=== PATIENT | male | born 1960 | race African-American/Black ===

== ENCOUNTER 2017-01-12 11:22 | Inpatient (IN) | payer OTHER ==
[~2017-01-12] VITALS: Ht 188 cm; Wt 106.1 kg
[2017-01-12] VITALS (14 sets, daily range): BP systolic 132–190; BP diastolic 90–130
--- NOTE | ~2017-01-12 | EKG ---
[place], [place] ELECTROCARDIOGRAM REPORT NAME: DYLLAN TELLES UNIT #: [id number] ROOM: [facility] DOCTOR: TEZ YUAN,MAN BIRTHDATE: [birth year] DOS: 01/12/2017 TIME: 01/12/2017 at 1155 hours. Sinus tachycardia at 130 beats per minute. Left ventricular hypertrophy with repolarization abnormality. An abnormal ECG. No previous tracing is available for comparison. MAN REAGAN MD CM:EKGRPT:ELECTROCARDIOGRAM REPORT [id number] MAN REAGAN MD
--- NOTE | ~2017-01-12 | CON ---
[place], [place] REPORT OF CONSULTATION [id number] #: [id number] ROOM: [facility] DOCTOR: MAN REAGAN MD BIRTHDATE: [birth year] DOS: 01/12/2017 HISTORY OF PRESENT ILLNESS: This is a 56-year-old -[place] gentleman who has never had hypertension, diabetes, heart failure, stroke, kidney problems or lung problems. He has never had cancer or any GI bleeding. He does not use alcoholic beverages. No illicit drugs. 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 I was asked to see him because of possible heart failure. This gentleman has been noticing increasing shortness of breath over the last 3-4 weeks and also has developed swelling of the lower extremities. He has always had mild swelling in the left leg, but now both leg and particularly the feet have become very swollen and his thighs have also become puffy. He has had PND and orthopnea for the last 3 weeks and has nocturia x 3. He had no palpitations, has not had any chest pain or any heaviness in the chest, has not had any loss of consciousness and no fever or chills. He is not on any medications. PHYSICAL EXAMINATION: GENERAL: The patient is very pleasant, alert, oriented. He is mildly tachypneic. His mucous membranes are normal. He is not diaphoretic. VITAL SIGNS: Pulse is regular at 118 beats per minute, blood pressure 130/76. NECK: JVP is elevated to greater than 15 cm of water. No bruit in the neck. Parasternal heave is not present. Auscultation revealed no obvious early murmurs or extra heart sounds that I could appreciate. He has severe edema of the lower extremity including thigh and torso is also edematous. HEART: S1, tachypnea. Percussion note revealed dullness in the lower half of the right lung with markedly diminished breath sounds. Crackles are present on both sides. ABDOMEN: Liver is mildly enlarged and is not tender. EXTREMITIES: There is no ascites. Bowel sounds are normal. LABORATORY DATA: An ECG showed a sinus tachycardia with LVH and repolarization abnormality. Monitor showed monomorphic ventricular tachycardia at 180 beats per minute. If I am not mistaken, the nurse told me it was 51 beats. Chest x-ray demonstrated moderate right pleural effusion and pulmonary edema. Hemoglobin 13.5 g/dL, platelets are normal. BUN 20, creatinine 1.5, potassium 4.0. NT-proBNP 37,716. Troponin I was 0.059. An echocardiogram was done today. It demonstrated LVH and an LV ejection fraction of 25% due to diffuse hypokinesia, mild left atrial enlargement, mild hypokinesia of the right ventricle and small pericardial effusion, mild mitral regurgitation, mild tricuspid regurgitation. Pulmonary artery systolic pressure is calculated at 52 mmHg. IMPRESSION: 1. This patient has severe cardiomyopathy and echo seemed to suggest nonischemic etiology. 2. He has severe biventricular failure with anasarca. [place], [place] REPORT OF CONSULTATION NAME: DYLLAN TELLES UNIT #: [id number] ROOM: [facility] DOCTOR: MAN REAGAN MD BIRTHDATE: [birth year] 3. Monomorphic ventricular tachycardia. This is of much concern in this patient with severe cardiomyopathy. RECOMMENDATIONS: Metoprolol 25 b.i.d., start slow dose lisinopril. He needs IV furosemide to onload tremendous amount of volume he has. Potassium and magnesium supplement is being started. This patient needs diagnostic heart cath with selective coronary angiogram to exclude coronary artery disease as the etiology of his cardiomyopathy. This ventricular tachycardia is of some concern. I think he probably will end up with an AICD. I thank you for this consult. MAN REAGAN MD CM:CONSTR:REPORT OF CONSULTATION 07 01/13/17 0230 interface
[~2017-01-12 11:22] MED LIST: VICO10300 PO
[2017-01-12 11:58] LABS: BASO % 0.2 % (0.0-1.0); EOS % 0.4 % (1.0-4.0); HEMOGLOBIN 13.5 g/dl (14.0-18.0); LYMPH # 1.2 10*3/uL (1.3-4.4); LYMPH % 24.9 % (27.0-41.0); MEAN CELL VOLUME 67.7 fl (80.0-94.0); MEAN CORPUSCULAR HGB 21.8 pg (27.0-31.0); MEAN CORPUSCULAR HGB CONC 32.1 g/dl (33.0-37.0); MEAN PLATELET VOLUME 9.9 fl (9.6-12.3); MONO # 0.4 10*3/uL (0.1-1.0); MONO % 8.2 % (3.0-9.0); NEUT # 3.1 10*3/uL (2.3-7.9); NEUT % 66.1 % (47.0-73.0); PLATELET COUNT AUTOMATED 359 10*3/uL (130-400); RED CELL DISTRI WIDTH 18.8 % (0-14.5); WHITE BLOOD COUNT 4.7 10*3/uL (4.8-10.8)
[2017-01-12 12:06] LABS: INTERNATIONAL NORM RATIO 1.1 (2.0-3.5); PROTHROMBIN TIME 11.5 SECONDS (9.0-12.4)
[2017-01-12 12:17] LABS: BILIRUBIN, TOTAL 0.6 mg/dl (0.2-1.0); C-REACTIVE PROTEIN 0.39 MG/DL (0-0.3); MAGNESIUM 1.9 mg/dL (1.5-2.1); TOTAL PROTEIN 6.4 gm/dL (6.4-8.2)
[2017-01-12 12:21] LABS: TROPONIN I 0.059 ng/ml (<0.045)
[2017-01-12 12:28] LABS: BILIRUBIN NEGATIVE (NEGATIVE); BLOOD TRACE-INTACT (NEGATIVE); CLARITY SL CLOUDY (CLEAR); COLOR YELLOW (YELLOW); GLUCOSE NEGATIVE (NEGATIVE); KETONE NEGATIVE (NEGATIVE); LEUKO ESTERASE NEGATIVE (NEGATIVE); NITRITE NEGATIVE (NEGATIVE); PH 5.5 (5.0-9.0); PROTEIN TRACE (NEGATIVE); UROBILINOGEN 0.2 E.U./dl (0.2-1.0)
[2017-01-12 12:45] LABS: URINE REFLEX COMMENT NO (NO)
[2017-01-12 12:46] LABS: BACTERIA TRACE; WBC 0-2 wbc/hpf (0-5)
[2017-01-12 13:55] LABS: LA>2 REFLEX 2 HR DRAW NOW
[2017-01-12 14:34] LABS: LA>2 RFLX FOLLOW UP AT 2 HRS 2.2 mmol/L (0.4-2.0)
[2017-01-12 16:25] LABS: LA>2 REFLEX 4 HR DRAW NOW
[2017-01-12 17:41] LABS: URINE AMPHETAMINES < 1000 (1000ng/ml); URINE BARBITURATES < 200 (200ng/ml); URINE COCAINE < 300 (300ng/ml)
[2017-01-12 18:15] LABS: CKMB 3.5 ng/ml (0.5-3.6)
[2017-01-12 18:19] LABS: TROPONIN I 0.065 ng/ml (<0.045)
== END 2017-01-12 22:42 | disposition short-term general hospital (02) | DRG 291 ==
LOC: ED 11:22 → EDHOLD 13:24 → 5E 13:32 → ICCU 17:08
PROVIDERS: Internal Medicine; Registered Nurse; Student in an Organized Health Care Education/Training Program
DX: I11.0 Hypertensive heart disease with heart failure (principal); N17.0 Acute kidney failure with tubular necrosis; E87.2 Acidosis; I16.1 Hypertensive emergency; E44.0 Moderate protein-calorie malnutrition; I34.0 Nonrheumatic mitral (valve) insufficiency; M13.872 Other specified arthritis, left ankle and foot; I50.9 Heart failure, unspecified; D50.9 Iron deficiency anemia, unspecified; I42.9 Cardiomyopathy, unspecified; D72.810 Lymphocytopenia; R73.9 Hyperglycemia, unspecified; Z68.28 Body mass index [BMI] 28.0-28.9, adult; Z87.891 Personal history of nicotine dependence; Z82.49 Family history of ischemic heart disease and other diseases of the circulatory system; Z83.3 Family history of diabetes mellitus

== ENCOUNTER 2017-02-18 12:04 | Inpatient (IN) | payer OTHER ==
[~2017-02-18] VITALS: Ht 187.9 cm; Wt 81.8 kg
[2017-02-18] VITALS (11 sets, daily range): BP systolic 143–196; BP diastolic 97–124
[2017-02-18] MEDS ORDERED: Magnesium Oxid400 MG PO (12:06)
[2017-02-18] MEDS ORDERED: POTASSIUM CHLO10 ME4 PO (12:06)
[2017-02-18] MEDS ORDERED: LISINOPRIL10 M1 PO (12:06)
[2017-02-18] MEDS ORDERED: ASPIRIN ADULT L81 M1 PO (12:06)
[2017-02-18] MEDS ORDERED: AMIODARONE HCL200 MG PO (12:06)
[2017-02-18] MEDS ORDERED: METOPROLOL TART50 M1 PO (12:06)
[2017-02-18] MEDS ORDERED: NITROGLYCERIN0.4 MG SL (12:06)
[2017-02-18] MEDS ORDERED: ATORVASTATIN CA80 M1 PO (12:07)
[2017-02-18] MEDS ORDERED: BRILINTA90 M1 PO ×2 (12:07→12:48)
[2017-02-18] MEDS ORDERED: LASIX40 MG PO ×2 (12:13→12:48)
[2017-02-18 12:34] LABS: BASO % 0.2 % (0.0-1.0); EOS % 0.4 % (1.0-4.0); HEMATOCRIT 36.8 % (42.0-52.0); LYMPH # 0.9 10*3/uL (1.3-4.4); LYMPH % 17.3 % (27.0-41.0); MEAN CELL VOLUME 68.1 fl (80.0-94.0); MEAN CORPUSCULAR HGB 22.2 pg (27.0-31.0); MEAN CORPUSCULAR HGB CONC 32.6 g/dl (33.0-37.0); MEAN PLATELET VOLUME 10.1 fl (9.6-12.3); MONO # 0.5 10*3/uL (0.1-1.0); MONO % 9.2 % (3.0-9.0); NEUT # 3.9 10*3/uL (2.3-7.9); NEUT % 72.7 % (47.0-73.0); PLATELET COUNT AUTOMATED 296 10*3/uL (130-400); RED CELL DISTRI WIDTH 20.6 % (0-14.5); WHITE BLOOD COUNT 5.3 10*3/uL (4.8-10.8)
[2017-02-18 12:43] LABS: INTERNATIONAL NORM RATIO 1.1 (2.0-3.5); PROTHROMBIN TIME 11.6 SECONDS (9.0-12.4)
[2017-02-18] MEDS ORDERED: FISH OIL1000 MG PO (12:48)
[2017-02-18] MEDS ORDERED: PACERONE200 MG PO (12:49)
[2017-02-18] MEDS ORDERED: LIPITOR80 MG PO (12:49)
[2017-02-18] MEDS ORDERED: NITROSTAT0.4 MG SL (12:50)
[2017-02-18] MEDS ORDERED: LOPRESSOR50 M1 PO (12:51)
[2017-02-18] MEDS ORDERED: LISINOPRIL2.5 MG PO (12:51)
[2017-02-18] MEDS ORDERED: ASPIRIN81 M1 PO (12:52)
[2017-02-18] MEDS ORDERED: MAGNESIUM OXID400 MG PO (12:52)
[2017-02-18] MEDS ORDERED: KLOR-CON 1010 ME1 PO (12:53)
[2017-02-18 12:54] LABS: ALBUMIN 3.4 gm/dl (3.1-4.5); ALKALINE PHOSPHATASE 108 U/L (45-117); BILIRUBIN, TOTAL 0.8 mg/dl (0.2-1.0); BUN 14 mg/dl (7-24); CARBON DIOXIDE 23 mmol/L (21-32); CHLORIDE 107 mmol/L (98-107); EST GLOM FILT AFRICAN AMERICAN > 60 ml/min; GLUCOSE 139 mg/dL (65-99); MAGNESIUM 1.7 mg/dL (1.5-2.1); POTASSIUM 3.6 mmol/L (3.5-5.1); SGOT/AST 27 IU/L (3-35); SGPT/ALT 64 U/L (12-78); SODIUM 140 mmol/L (136-145); TOTAL PROTEIN 6.9 gm/dL (6.4-8.2); TROPONIN I 0.021 ng/ml (<0.045)
[2017-02-18 14:47] LABS: LA>2 REFLEX 2 HR DRAW NOW
[2017-02-18 17:56] LABS: CKMB 1.9 ng/ml (0.5-3.6)
[2017-02-19] VITALS (8 sets, daily range): BP systolic 132–185; BP diastolic 95–126
[2017-02-19 00:32] LABS: CKMB 2.1 ng/ml (0.5-3.6)
[2017-02-19 06:24] LABS: BASO % 0.4 % (0.0-1.0); EOS # 0.1 10*3/uL (0.0-0.4); EOS % 1.2 % (1.0-4.0); HEMATOCRIT 33.7 % (42.0-52.0); LYMPH # 1.4 10*3/uL (1.3-4.4); LYMPH % 27.3 % (27.0-41.0); MEAN CELL VOLUME 68.4 fl (80.0-94.0); MEAN CORPUSCULAR HGB 22.3 pg (27.0-31.0); MEAN CORPUSCULAR HGB CONC 32.6 g/dl (33.0-37.0); MEAN PLATELET VOLUME 9.9 fl (9.6-12.3); MONO # 0.6 10*3/uL (0.1-1.0); MONO % 11.8 % (3.0-9.0); NEUT # 2.9 10*3/uL (2.3-7.9); NEUT % 59.1 % (47.0-73.0); PLATELET COUNT AUTOMATED 254 10*3/uL (130-400); RED BLOOD COUNT 4.93 10*6/uL (4.50-5.90); RED CELL DISTRI WIDTH 19.9 % (0-14.5)
[2017-02-19 06:38] LABS: ALBUMIN 2.8 gm/dl (3.1-4.5); ALKALINE PHOSPHATASE 90 U/L (45-117); BILIRUBIN, TOTAL 0.8 mg/dl (0.2-1.0); BUN 17 mg/dl (7-24); CARBON DIOXIDE 27 mmol/L (21-32); CHLORIDE 106 mmol/L (98-107); CHOLESTEROL 117 mg/dL (<200); EST GLOM FILT AFRICAN AMERICAN > 60 ml/min; GLUCOSE 77 mg/dL (65-99); HDL CHOLESTEROL 36 mg/dl (40-60); LDL CHOLESTEROL 71 mg/dL (9-159); MAGNESIUM 1.7 mg/dL (1.5-2.1); PHOSPHOROUS 3.9 mg/dL (2.5-4.9); SGOT/AST 29 IU/L (3-35); SGPT/ALT 59 U/L (12-78); SODIUM 141 mmol/L (136-145); TOTAL PROTEIN 5.8 gm/dL (6.4-8.2); TRIGLYCERIDES 50 mg/dl (<150); VLDL CHOLESTEROL 10 mg/dL (6-40)
[2017-02-19 06:39] LABS: CKMB 1.9 ng/ml (0.5-3.6)
[2017-02-19 19:25] LABS: BUN 18 mg/dl (7-24); CARBON DIOXIDE 29 mmol/L (21-32); CHLORIDE 104 mmol/L (98-107); EST GLOM FILT AFRICAN AMERICAN > 60 ml/min; GLUCOSE 107 mg/dL (65-99); POTASSIUM 4.1 mmol/L (3.5-5.1); SODIUM 139 mmol/L (136-145)
[2017-02-20] VITALS: BP 141/111
[2017-02-20 04:00] VITALS: BP 140/92
[2017-02-20 06:38] LABS: BASO % 0.2 % (0.0-1.0); EOS # 0.1 10*3/uL (0.0-0.4); EOS % 1.9 % (1.0-4.0); HEMATOCRIT 34.9 % (42.0-52.0); HEMOGLOBIN 11.3 g/dl (14.0-18.0); LYMPH # 1.3 10*3/uL (1.3-4.4); LYMPH % 22.1 % (27.0-41.0); MEAN CELL VOLUME 67.6 fl (80.0-94.0); MEAN CORPUSCULAR HGB 21.9 pg (27.0-31.0); MEAN CORPUSCULAR HGB CONC 32.4 g/dl (33.0-37.0); MEAN PLATELET VOLUME 10.5 fl (9.6-12.3); MONO # 0.7 10*3/uL (0.1-1.0); MONO % 12.7 % (3.0-9.0); NEUT # 3.6 10*3/uL (2.3-7.9); NEUT % 62.9 % (47.0-73.0); PLATELET COUNT AUTOMATED 282 10*3/uL (130-400); RED BLOOD COUNT 5.16 10*6/uL (4.50-5.90); WHITE BLOOD COUNT 5.7 10*3/uL (4.8-10.8)
[2017-02-20 07:01] LABS: BUN 17 mg/dl (7-24); CARBON DIOXIDE 29 mmol/L (21-32); CHLORIDE 104 mmol/L (98-107); EST GLOM FILT AFRICAN AMERICAN > 60 ml/min; FREE T4 1.13 ng/dl (0.76-1.46); GLUCOSE 84 mg/dL (65-99); POTASSIUM 3.9 mmol/L (3.5-5.1); SODIUM 140 mmol/L (136-145)
[2017-02-20 08:00] VITALS: BP 144/114
[2017-02-20 12:00] VITALS: BP 144/112
[2017-02-20 16:00] VITALS: BP 137/109
[2017-02-20 20:00] VITALS: BP 139/106
[2017-02-21] VITALS: BP 156/113
[2017-02-21 06:27] LABS: BASO % 0.3 % (0.0-1.0); EOS # 0.1 10*3/uL (0.0-0.4); EOS % 1.8 % (1.0-4.0); HEMATOCRIT 37.2 % (42.0-52.0); HEMOGLOBIN 12.2 g/dl (14.0-18.0); LYMPH # 1.3 10*3/uL (1.3-4.4); LYMPH % 21.4 % (27.0-41.0); MEAN CELL VOLUME 68.1 fl (80.0-94.0); MEAN CORPUSCULAR HGB 22.3 pg (27.0-31.0); MEAN CORPUSCULAR HGB CONC 32.8 g/dl (33.0-37.0); MEAN PLATELET VOLUME 10.2 fl (9.6-12.3); MONO # 0.6 10*3/uL (0.1-1.0); MONO % 10.5 % (3.0-9.0); NEUT % 65.7 % (47.0-73.0); PLATELET COUNT AUTOMATED 294 10*3/uL (130-400); RED BLOOD COUNT 5.46 10*6/uL (4.50-5.90); RED CELL DISTRI WIDTH 20.7 % (0-14.5); WHITE BLOOD COUNT 6.1 10*3/uL (4.8-10.8)
[2017-02-21 08:00] VITALS: BP 146/90
[2017-02-21 08:51] LABS: ALBUMIN 3.1 gm/dl (3.1-4.5); ALKALINE PHOSPHATASE 103 U/L (45-117); BILIRUBIN, TOTAL 0.9 mg/dl (0.2-1.0); BUN 17 mg/dl (7-24); CARBON DIOXIDE 32 mmol/L (21-32); CHLORIDE 102 mmol/L (98-107); EST GLOM FILT AFRICAN AMERICAN > 60 ml/min; GLUCOSE 67 mg/dL (65-99); MAGNESIUM 1.8 mg/dL (1.5-2.1); POTASSIUM 4.2 mmol/L (3.5-5.1); SGOT/AST 25 IU/L (3-35); SGPT/ALT 51 U/L (12-78); SODIUM 141 mmol/L (136-145)
[2017-02-21 12:00] VITALS: BP 121/86
[2017-02-21 16:00] VITALS: BP 126/90
[2017-02-21 20:00] VITALS: BP 140/103
[2017-02-22] VITALS: BP 124/92
[2017-02-22 06:21] LABS: BASO % 0.2 % (0.0-1.0); EOS # 0.1 10*3/uL (0.0-0.4); EOS % 2.2 % (1.0-4.0); LYMPH # 1.1 10*3/uL (1.3-4.4); LYMPH % 21.7 % (27.0-41.0); MEAN CELL VOLUME 67.2 fl (80.0-94.0); MEAN CORPUSCULAR HGB 21.8 pg (27.0-31.0); MEAN CORPUSCULAR HGB CONC 32.4 g/dl (33.0-37.0); MEAN PLATELET VOLUME 10.8 fl (9.6-12.3); MONO # 0.6 10*3/uL (0.1-1.0); MONO % 11.8 % (3.0-9.0); NEUT # 3.2 10*3/uL (2.3-7.9); NEUT % 63.7 % (47.0-73.0); PLATELET COUNT AUTOMATED 299 10*3/uL (130-400); RED BLOOD COUNT 5.51 10*6/uL (4.50-5.90); RED CELL DISTRI WIDTH 20.6 % (0-14.5); WHITE BLOOD COUNT 5.1 10*3/uL (4.8-10.8)
[2017-02-22 06:24] LABS: BUN 15 mg/dl (7-24); CARBON DIOXIDE 30 mmol/L (21-32); CHLORIDE 103 mmol/L (98-107); EST GLOM FILT AFRICAN AMERICAN > 60 ml/min; GLUCOSE 71 mg/dL (65-99); POTASSIUM 3.6 mmol/L (3.5-5.1); SODIUM 141 mmol/L (136-145)
[2017-02-22 08:00] VITALS: BP 143/98
[2017-02-22 12:00] VITALS: BP 110/70
[2017-02-22 16:00] VITALS: BP 106/72
[2017-02-22] MEDS ORDERED: METOPROLOL TAR100 M1 PO (17:24)
[2017-02-22] MEDS ORDERED: APRESOLINE25 MG PO (17:24)
[2017-02-22] MEDS ORDERED: LISINOPRIL10 M1 PO (17:24)
== END 2017-02-22 18:40 | disposition home or self-care (01) | DRG 291 ==
LOC: ED 12:04 → 5E 13:29 → EDHOLD 13:29 → 5E 14:07
PROVIDERS: Hospitalist; Internal Medicine; Internal Medicine Cardiovascular Disease; Internal Medicine Nephrology; Nurse Practitioner Family
DX: I11.0 Hypertensive heart disease with heart failure (principal); N17.0 Acute kidney failure with tubular necrosis; E87.2 Acidosis; J18.9 Pneumonia, unspecified organism; D50.9 Iron deficiency anemia, unspecified; F17.200 Nicotine dependence, unspecified, uncomplicated; I16.1 Hypertensive emergency; F17.210 Nicotine dependence, cigarettes, uncomplicated; D53.9 Nutritional anemia, unspecified; I50.23 Acute on chronic systolic (congestive) heart failure; R00.0 Tachycardia, unspecified; R73.9 Hyperglycemia, unspecified; F12.90 Cannabis use, unspecified, uncomplicated; Z95.5 Presence of coronary angioplasty implant and graft; Z95.810 Presence of automatic (implantable) cardiac defibrillator; Z79.82 Long term (current) use of aspirin; Z88.8 Allergy status to other drugs, medicaments and biological substances; Z82.49 Family history of ischemic heart disease and other diseases of the circulatory system; Z83.3 Family history of diabetes mellitus

== ENCOUNTER 2017-05-01 10:34 | Emergency (ER) | payer SELFPAY ==
[~2017-05-01] VITALS: Ht 187.9 cm; Wt 83.0 kg
[~2017-05-01 10:34] MED LIST changes: +AMIODARONE HCL200 MG PO; +APRESOLINE25 MG PO; +ASPIRIN ADULT L81 M1 PO; +ASPIRIN81 M1 PO; +ATORVASTATIN CA80 M1 PO; +BRILINTA90 M1 PO; +FISH OIL1000 MG PO; +KLOR-CON 1010 ME1 PO; +LASIX40 MG PO; +LIPITOR80 MG PO; +LISINOPRIL10 M1 PO; +LISINOPRIL2.5 MG PO; +LOPRESSOR50 M1 PO; +MAGNESIUM OXID400 MG PO; +METOPROLOL TAR100 M1 PO; +METOPROLOL TART50 M1 PO; +Magnesium Oxid400 MG PO; +NITROGLYCERIN0.4 MG SL; +NITROSTAT0.4 MG SL; +PACERONE200 MG PO; +POTASSIUM CHLO10 ME4 PO
== END 2017-05-01 13:03 | disposition home or self-care (01) ==
LOC: ED 10:34
DX: Z48.01 Encounter for change or removal of surgical wound dressing (principal); I11.0 Hypertensive heart disease with heart failure; I50.9 Heart failure, unspecified; F17.200 Nicotine dependence, unspecified, uncomplicated; Z88.8 Allergy status to other drugs, medicaments and biological substances; Z79.82 Long term (current) use of aspirin

== ENCOUNTER 2017-05-29 16:33 | Inpatient (IN) | payer SELFPAY ==
[~2017-05-29] VITALS: Ht 188 cm; Wt 82.7 kg
--- NOTE | ~2017-05-29 | CON ---
[place], [place] REPORT OF CONSULTATION [id number] UNIT #: [id number] ROOM: 403 DOCTOR: ANGUS PAZ MD BIRTHDATE: [birth year] DOS: 05/30/2017 HISTORY OF PRESENT ILLNESS: I am seeing this patient on behalf of Dr. Reagan. The patient was seen by Dr. Reagan in the office yesterday. The patient had a hematoma. The patient had a defibrillator placed by Dr. Elizondo 1 month ago. The patient has a history of left ventricular dysfunction. The patient had a hematoma, which burst open and cleaned by Dr. Reagan and he has suggested the patient should be admitted to the hospital for IV antibiotics. The patient got admitted here. The patient got dark brown liquid, probably of chronic blood from the hematoma that he had post-procedure. Procedure was done by Dr. Elizondo and seen by Dr. Reagan yesterday. Right now, the patient does not look to be septic. He is very comfortable. His white count is only 3.9 and he is afebrile. I discussed with Dr. Reagan. He does not want the patient to be transferred anywhere. At this point, he does not look to be septic, septic workup needs to be done with weldon cultures. The patient should be on IV antibiotics. If there is any evidence of sepsis, then the patient probably needs to be transferred to [place]. PAST MEDICAL HISTORY: Significant for severe cardiomyopathy, low EF, cardiac defibrillator in place, status post stent placement, hypertension and hyperlipidemia. SOCIAL HISTORY: Denies any alcohol abuse, former smoker and marijuana use. FAMILY HISTORY: Positive for coronary artery disease. ALLERGIES: AMIODARONE. HOME MEDICATIONS: Aspirin, atorvastatin, Lasix and ticagrelor. REVIEW OF SYSTEMS: CONSTITUTIONAL: Denies any fever or chills. HEENT: No visual disturbances or hearing problems. CARDIOVASCULAR: As per HPI. GASTROINTESTINAL: No nausea, no vomiting. GENITOURINARY: No dysuria. NEUROLOGICAL: Stable. PHYSICAL EXAMNATION: VITAL SIGNS: Blood pressure today is 160/90. He is afebrile. HEENT: Unremarkable. Pacer site is slightly indurated and appears to have a small hematoma still present. NECK: Supple, no JVD. LUNGS: Diminished air entry. ABDOMEN: Soft, nontender. EXTREMITIES: Intact pulses. LABORATORY DATA: Sodium 139, potassium 3.7 and creatinine is normal. Troponin is negative. White count is 5, hemoglobin 12, hematocrit 38.2. [place], [place] REPORT OF CONSULTATION NAME: DYLLAN TELLES UNIT #: [id number] ROOM: 403 DOCTOR: ANGUS PAZ MD BIRTHDATE: [birth year] IMPRESSION: Status post pacemaker hematoma, defibrillator hematoma site. I do not think there is evidence of sepsis at this point. The patient is afebrile and white count is not elevated, blood pressure is in place, systolic congestive heart failure is well compensated. RECOMMENDATIONS: Continue IV antibiotics. The patient should be pancultured and we will review the echocardiogram. Continue the other medications as ordered. The patient is already on IV Zosyn and IV vancomycin, and we will follow up with you. Discussed with the house staff. ANGUS PAZ MD MAN REAGAN MD CM:CONSTR:REPORT OF CONSULTATION 0 05/30/1704 interface
--- NOTE | ~2017-05-29 | EKG ---
[place], [place] ELECTROCARDIOGRAM REPORT NAME: DYLLAN TELLES UNIT #: [id number] ROOM: 403 DOCTOR: MAN REAGAN MD BIRTHDATE: [birth year] DOS: 05/29/2017 TIME: 1931 hours. Normal sinus rhythm at 88 beats per minute. Left atrial abnormality. Poor R-wave progression. T-wave inversion in the lateral leads. An abnormal ECG. No previous tracing is available for comparison. MAN REAGAN MD CM:EKGRPT:ELECTROCARDIOGRAM REPORT 1141 1244 MAN REAGAN MD
--- NOTE | ~2017-05-29 | EKG ---
[place], [place] ELECTROCARDIOGRAM REPORT NAME: DYLLAN TELLES UNIT #: [id number] ROOM: 403 DOCTOR: MAN REAGAN MD BIRTHDATE: [birth year] DOS: 05/29/2017 TIME: 1722 hours. Normal sinus rhythm at 85 beats per minute. Left ventricular hypertrophy with repolarization abnormalities. Consider left atrial abnormality. MAN REAGAN MD CM:EKGRPT:ELECTROCARDIOGRAM REPORT 1143 1249 MAN REAGAN MD
--- NOTE | ~2017-05-29 | PR ---
[place], [place] PROGRESS NOTE NAME: [id number] UNIT #: [id number] ROOM: 403 DOCTOR: ANGUS PAZ MD BIRTHDATE: [birth year] DOS: 05/31/2017 SUBJECTIVE: I discussed the case with Dr. Reeves also with Dr. Elizabeth Ornelas. OBJECTIVE: VITAL SIGNS: The patient's blood pressure today is 146/90. He is afebrile. HEENT: Unremarkable. NECK: Supple, no JVD. LUNGS: Clear. HEART: Sounds are regular. Defibrillator site appears to be slightly indurated and not much discharge present. NEUROLOGIC: Stable. REVIEW OF SYSTEMS: Complains of pain over the left defibrillator site. Does have some dyspnea on exertion. No Chest discomfort. No GI issues. No neurological issues. LABORATORY DATA: White count of 3.8, hemoglobin 11.3, hematocrit 35.6. Electrolytes are normal. Hemoglobin A1c 5.8. IMPRESSION: Defibrillator site infection, hematoma, cardiomyopathy, hypertension. RECOMMENDATION: Continue IV antibiotics. Dr. Reeves will evaluate the patient and ID consult has been obtained. No obvious signs of sepsis and I will closely follow up. Blood cultures are pending. ANGUS PAZ MD CM:PNTRANS [id number] ANGUS PAZ MD 05/31/17 2340 interface
--- NOTE | ~2017-05-29 | PR ---
[place], [place] PROGRESS NOTE NAME: DYLLAN TELLES [facility] #: [id number] UNIT #: [id number] ROOM: 403 DOCTOR: MAN REAGAN MD BIRTHDATE: [birth year] DOS: SUBJECTIVE: This patient had an AICD implanted 3 weeks ago and 3 days prior to this admission, the wound had opened up because of large hematoma in the pocket. Drain was odorless and blood stained. Cultures were sent and ____ IV antibiotics. There is no more discharge, there is no effusion in the pocket and small opening on the lateral side of the wound is sealed and closing off. OBJECTIVE: The examination does not reveal any evidence of heart failure. LABORATORY DATA: An echocardiogram showed excellent ____ the valves, which demonstrated no endocarditis. EF was about 35%. IMPRESSION AND PLAN: 1. Severe cardiomyopathy. 2. Recent implantation of an automatic implantable cardioverter-defibrillator device with hematoma within the pocket, which ruptured. The wound has sealed off now. He can be sent home on IV antibiotics. He follow up with Dr. Elizondo and I would like to see him in the next couple of weeks as well. MAN REAGAN MD CM:PNTRANS [phone] [id number] MAN REAGAN MD 06/01/17 175 interface
[2017-05-29 16:41] VITALS: BP 182/110
[2017-05-29 17:01] VITALS: BP 170/90
--- NOTE | 2017-05-29 17:02 | NUR ---
THE SITE WAS CLEANED AND A CLEAN DRY DRESSING WAS APPLIED AFTER A CULTURE WAS TAKEN
[2017-05-29 17:23] LABS: BASO % 0.4 % (0.0-1.0); EOS # 0.1 10*3/uL (0.0-0.4); HEMATOCRIT 38.2 % (42.0-52.0); LYMPH # 1.2 10*3/uL (1.3-4.4); LYMPH % 23.2 % (27.0-41.0); MEAN CELL VOLUME 72.5 fl (80.0-94.0); MEAN CORPUSCULAR HGB 22.8 pg (27.0-31.0); MEAN CORPUSCULAR HGB CONC 31.4 g/dl (33.0-37.0); MEAN PLATELET VOLUME 11.2 fl (9.6-12.3); MONO # 0.4 10*3/uL (0.1-1.0); MONO % 8.4 % (3.0-9.0); NEUT # 3.4 10*3/uL (2.3-7.9); NEUT % 66.8 % (47.0-73.0); PLATELET COUNT AUTOMATED 261 10*3/uL (130-400); RED BLOOD COUNT 5.27 10*6/uL (4.50-5.90); RED CELL DISTRI WIDTH 17.4 % (0-14.5)
[2017-05-29 17:39] LABS: ALBUMIN 4.1 gm/dl (3.1-4.5); ALKALINE PHOSPHATASE 103 U/L (45-117); BUN 14 mg/dl (7-24); CHLORIDE 103 mmol/L (98-107); CREATININE 0.98 mg/dL (0.70-1.30); POTASSIUM 3.7 mmol/L (3.5-5.1); SGOT/AST 34 IU/L (3-35); SGPT/ALT 50 U/L (12-78); SODIUM 139 mmol/L (136-145); TOTAL PROTEIN 8.2 gm/dL (6.4-8.2); TROPONIN I 0.027 ng/ml (<0.045)
--- NOTE | 2017-05-29 18:36 | NUR ---
THE PT DID NOT WANT TO TAKE HIS PANTS AND SHOES OFF. DRAINING WOUND NOTED TO THE LEFT UPPER CHEST/SHOULDER AREA. THE PATIENT DENIES HAVING ANY OTHER OPEN AREAS TO HIS PERSON
[2017-05-29 19:05] VITALS: BP 162/98
[2017-05-29 19:44] VITALS: BP 156/88
[2017-05-29 20:29] VITALS: BP 182/95
[2017-05-29 20:30] VITALS: BP 182/95
--- NOTE | 2017-05-29 20:30 | NUR ---
A 56, admitted to , under the services of HANSEL Mata DO with a diagnosis of INFECTED SURGICAL WOUND. Chief complaint is DRAINAGE FROM NEW PACEMAKER SITE. Patient arrived via stretcher from ER. Monitor applied. Initial assessment completed. Vital signs taken and recorded. HANSEL MATA DO notified of admission to the unit. Orders received. See assessment for past medical history, medications and allergies. Patient and/or family oriented to unit. [facility] visitation policy reviewed. Clothing/patient valuable form completed. NAHOMY AVERY
[2017-05-29] MEDS ORDERED: LISINOPRIL10 M1 PO (20:33)
[2017-05-29] MEDS ORDERED: MULTIPLE VITAM1 EAC2 PO (20:36)
--- NOTE | 2017-05-29 20:39 | NUR ---
MED REC COMPLETED WITH LIST PATIENT BROUGHT FROM HOME. COPY MADE AND ON THE CHART. ORIGINAL GIVEN BACK TO PATIENT
--- NOTE | 2017-05-29 20:52 | NUR ---
DR. REAGAN NOTIFIED BY ER OF CONSULT.
--- NOTE | 2017-05-29 21:05 | NUR ---
DR. LOMAX REMINDED TO REORDER HOME MEDS, ACCURATE PER THE LIST PT. HAD. ALSO NOTIFIED OF PT'S B/P OF . AWAITING ORDERS
--- NOTE | 2017-05-29 22:43 | NUR ---
DR. MORALES STATED SURGICAL WOUND WOULD BE EVALUATED BY WOUND CARE IN AM AND DRESSING CHANGE ORDERS TO FOLLOW. OKAY TO COVER WITH 4x4S AND OPSITE WHILE DRAINING THIS PM.
[2017-05-30] VITALS: BP 127/87
[2017-05-30 06:07] LABS: BASO % 0.3 % (0.0-1.0); EOS # 0.1 10*3/uL (0.0-0.4); EOS % 1.6 % (1.0-4.0); HEMATOCRIT 33.7 % (42.0-52.0); HEMOGLOBIN 10.6 g/dl (14.0-18.0); LYMPH # 1.4 10*3/uL (1.3-4.4); LYMPH % 35.2 % (27.0-41.0); MEAN CELL VOLUME 73.1 fl (80.0-94.0); MEAN CORPUSCULAR HGB CONC 31.5 g/dl (33.0-37.0); MEAN PLATELET VOLUME 10.8 fl (9.6-12.3); MONO # 0.5 10*3/uL (0.1-1.0); MONO % 11.9 % (3.0-9.0); PLATELET COUNT AUTOMATED 204 10*3/uL (130-400); RED BLOOD COUNT 4.61 10*6/uL (4.50-5.90); RED CELL DISTRI WIDTH 17.2 % (0-14.5); WHITE BLOOD COUNT 3.9 10*3/uL (4.8-10.8)
[2017-05-30 06:40] LABS: BUN 13 mg/dl (7-24); CHLORIDE 105 mmol/L (98-107); CREATININE 0.91 mg/dL (0.70-1.30); POTASSIUM 3.6 mmol/L (3.5-5.1); SODIUM 141 mmol/L (136-145)
[2017-05-30 06:59] LABS: ACT PARTIAL THROMBO TIME 37.3 SECONDS (20.8-31.5); INTERNATIONAL NORM RATIO 1.1 (2.0-3.5)
[2017-05-30 07:02] LABS: VITAMIN D, 25-HYDROXY 19.2 ng/mL (30-100)
[2017-05-30 08:00] VITALS: BP 142/84
--- NOTE | 2017-05-30 08:00 | NUR ---
PT AWAKE ASSESSMENT COMPLETE. PT TOLERATED ROUTINE MEDS. NO PT COMPLAINTS AT THIS TIME.
--- NOTE | 2017-05-30 09:00 | NUR ---
Gasoline Plant Operator in to talk to patient. Patient states lives at home with family. There are few steps in the home. Physician: hilaria [facility] Home health services: none Patient's level of ADLs: INDEPENDENT Patient has working utilities: all working DME: none Follow-up physician's appointment after d/c: will be made by hospitalist nurse director upon discharge Does patient want to access PORTAL?: no Discharge plan discussed with patient, patient lives at home with family, states he gets around fine, patient states he will be going back home and denies any home needs. LIT GROSS
--- NOTE | 2017-05-30 10:27 | NUR ---
PER BUDGET ANALYST DURING ECHOCARDIOGRAM PT HAD A 7 BEAT RUN OF V-TACH. DR HERNANDEZ NOTIFIED. ORDER TO MAKE PT MONITORED RECEIVED.
--- NOTE | 2017-05-30 11:07 | NUR ---
CALLED DR LOBATO OFFICE AND LEFT INFORMATION REGARDING NEW PATIENT CONSULT. DR PULIDO WILL SEE PT LATER TODAY.
[2017-05-30 12:00] VITALS: BP 126/88
--- NOTE | 2017-05-30 12:49 | NUR ---
DYLLAN TELLES [id number] Please refer to the physician's history and physical for past medical history, comorbid conditions, and allergies. Diagnosis: INFECTED SURGICAL WOUND Sawyer Score: 22,LOW OR NO RISK WOUND DESCRIPTIONS: Location of the wound: left chest wall Type of wound: surgical Thickness: Full Size: 0.4cm x 0.3cm x 1.3cm Tunneling: none Undermining: none Sinus Tract: none Presence of Exudate: Sanguineous Amount: Moderate Color: Yellow Odor: None Periwound Skin Appearance: Normal Wound edges: approximated Pain (associated with wound): none at time of assessment. How does patient state this happened? pt stated it started draining last night then on monday it was draining on and off and stop sat and sun went to see Dr. Reeves on monday and push on area and dark brown fluid came out and was recommend that patient come to the hosptial to be seen. Patient stated Dr. Zhu did the surgery but since has been following with Dr. Reeves. Surface the patient is resting on: Position Pro SKIN PREVENTION RECOMMENDATION: 1. Pressure redistribution support surface as appropriate 2. Elevate heels 3. Remove boots/TEDS every shift and reapply 4. Head of bed 30 degrees as tolerated 5. Assess nutrition and hydration 6. Manage moisture 7. Avoid the use of containment devices while in bed 8. Use absorptive products on surfaces limit layers of linens on bed 9. Turn and reposition every 1-2 hours in bed and every 1 hour in chair as tolerated 10. Weight shifts every 15 minutes while up in chair 11. Offloading with pillows or device to keep heels elevated off bed 12. Monitor skin at least every shift 13. Inspect under medical devices twice a day WOUND TREATMENT RECOMMENDATIONS: Spoke with Dr. Stanley stating we need wound care orders for the area. Dr. Stanley stated they are going to wait until ID sees patient for recommendations.
--- NOTE | 2017-05-30 13:10 | NUR ---
ADMINISTERED FLU VACCINATION. RIGHT DELTOID
--- NOTE | 2017-05-30 15:36 | NUR ---
DR WINTER IN TO SEE PATIENT REGARDING ID CONSULT.
[2017-05-30 16:00] VITALS: BP 135/96
[2017-05-30 18:29] VITALS: BP 131/85
[2017-05-30 20:00] VITALS: BP 152/97
--- NOTE | 2017-05-30 20:00 | NUR ---
PATIENT SITTING UP IN BED, DENIES ANY PAIN AT PACER SITE, NO DRAINAGE. BANDAGE DRY AND INTACT. PATIENT HAS NO COMPLAINTS AT THIS TIME. WILL CONTINUE TO MONITOR, PATIENT LEFT WITH CALL LIGHT IN REACH.
--- NOTE | 2017-05-30 21:43 | NUR ---
DR MORALES NOTIFIED OF PATIENT HAVING 7 BEAT RUN OF VTACH. HE ASKED TO NOTIFY CARDIO.
--- NOTE | 2017-05-30 21:46 | NUR ---
NOTIFIED DR. PAZ NOTIFIED OF PATIENT HAVING 7 BEAT RUN OF VTACH. NO NEW ORDERS RECEIVED, CONTINUE TO MONITOR.
[2017-05-31] VITALS: BP 126/86
--- NOTE | 2017-05-31 00:21 | NUR ---
24 HR chart check completed.
[2017-05-31 07:50] LABS: BASO % 0.8 % (0.0-1.0); EOS # 0.2 10*3/uL (0.0-0.4); HEMATOCRIT 35.6 % (42.0-52.0); HEMOGLOBIN 11.3 g/dl (14.0-18.0); LYMPH # 0.9 10*3/uL (1.3-4.4); LYMPH % 24.5 % (27.0-41.0); MEAN CELL VOLUME 71.8 fl (80.0-94.0); MEAN CORPUSCULAR HGB 22.8 pg (27.0-31.0); MEAN CORPUSCULAR HGB CONC 31.7 g/dl (33.0-37.0); MEAN PLATELET VOLUME 11.2 fl (9.6-12.3); MONO # 0.4 10*3/uL (0.1-1.0); MONO % 10.6 % (3.0-9.0); NEUT # 2.3 10*3/uL (2.3-7.9); NEUT % 60.1 % (47.0-73.0); PLATELET COUNT AUTOMATED 180 10*3/uL (130-400); RED BLOOD COUNT 4.96 10*6/uL (4.50-5.90); RED CELL DISTRI WIDTH 17.4 % (0-14.5); WHITE BLOOD COUNT 3.8 10*3/uL (4.8-10.8)
[2017-05-31 08:00] VITALS: BP 146/92
--- NOTE | 2017-05-31 08:00 | NUR ---
RESTING QUIETLY IN BED. NO DISTRESS NOTED. DRESSING TO RIGHT CHEST PACER SITE DRY AND INTACT. WILL CONTINUE TO MONITOR. SEE SHIFT ASSESSMENT.
--- NOTE | 2017-05-31 09:00 | NUR ---
Technology Sales Representative in to talk to patient. Patient states lives at home with son. There are few steps in the home. Physician: hilraia [facility] Home health services: none Patient's level of ADLs: INDEPENDENT Patient has working utilities: all working DME: none Follow-up physician's appointment after d/c: will be made by hospitalist nurse director upon discharge Does patient want to access PORTAL?: no Discharge plan discussed with patient, patient lives at home with his son, states he is independent in adls and ambulation, patient states he will be going home and denies any home needs, discussed with patient, not having any insurance, patient states that he thought he had a [employer] insurance, called Dulce Maria from Business office to check and see if patient has insurance. LIT GROSS
--- NOTE | 2017-05-31 10:00 | NUR ---
DR GILLIAM INFORMED THAT DRESSING CHANGE ORDERS NEEDED.
--- NOTE | 2017-05-31 10:30 | NUR ---
DR REAGAN CALLED PER DR GILLIAM AND DR PAZ REQUEST TO SEE WHAT TIME HE COULD DO JAY ON PT. DR REAGAN THEN SPOKE TO DR GILLIAM. NO JAY TO BE SCHEDULED AT THIS TIME.
[2017-05-31 16:00] VITALS: BP 146/82
--- NOTE | 2017-05-31 19:45 | NUR ---
PATIENT SITTING UP IN BED, DENIES ANY PAIN AT THE PACER SITE, NO DRAINAGE. BANDAGE DRY AND INTACT. PATIENT HOPING TO GET SOME SLEEP TONIGHT, DUE TO BEING AWAKEN EVERY HR FOR ANTIBIOTICS. PATIENT STATED HE IS AWAITING THE HEAR WHAT TYPE OF ANTIBIOTIC TREATMENT HE WILL RECEIVE PER INSURANCE. WILL CONTINUE TO MONITOR. PATIENT LEFT WITH CALL LIGHT IN REACH.
[2017-05-31 20:00] VITALS: BP 150/90
--- NOTE | 2017-05-31 22:17 | NUR ---
24 HR chart check completed.
[2017-06-01] VITALS: BP 150/88
[2017-06-01 06:41] LABS: BASO % 0.3 % (0.0-1.0); EOS # 0.1 10*3/uL (0.0-0.4); EOS % 3.6 % (1.0-4.0); HEMATOCRIT 33.5 % (42.0-52.0); HEMOGLOBIN 10.7 g/dl (14.0-18.0); LYMPH # 0.8 10*3/uL (1.3-4.4); LYMPH % 21.9 % (27.0-41.0); MEAN CORPUSCULAR HGB CONC 31.9 g/dl (33.0-37.0); MEAN PLATELET VOLUME 10.5 fl (9.6-12.3); MONO # 0.5 10*3/uL (0.1-1.0); MONO % 14.5 % (3.0-9.0); NEUT # 2.2 10*3/uL (2.3-7.9); NEUT % 59.4 % (47.0-73.0); PLATELET COUNT AUTOMATED 184 10*3/uL (130-400); RED BLOOD COUNT 4.65 10*6/uL (4.50-5.90); RED CELL DISTRI WIDTH 17.6 % (0-14.5); WHITE BLOOD COUNT 3.7 10*3/uL (4.8-10.8)
[2017-06-01 07:11] LABS: ALKALINE PHOSPHATASE 83 U/L (45-117); BUN 9 mg/dl (7-24); CHLORIDE 106 mmol/L (98-107); CREATININE 0.78 mg/dL (0.70-1.30); POTASSIUM 3.5 mmol/L (3.5-5.1); SGOT/AST 25 IU/L (3-35); SGPT/ALT 39 U/L (12-78); SODIUM 141 mmol/L (136-145); TOTAL PROTEIN 6.8 gm/dL (6.4-8.2)
[2017-06-01 08:00] VITALS: BP 158/90
--- NOTE | 2017-06-01 11:03 | NUR ---
case management received a message that patient may be going home on zyvox, called pharmacy to see if they could supply this medication, they have it in stock and are able to supply it to patient, informed hospitalist nurse direct that a script needs sent to pharmacy for them to supply the medication
[2017-06-01] MEDS ORDERED: ZYVOX600 MG PO (11:15)
[2017-06-01 12:00] VITALS: BP 150/88
--- NOTE | 2017-06-01 14:47 | NUR ---
Discharge instructions reviewed with patient/family. Patient receptive and verbalizes understanding. Follow-up care arranged. Written instructions given to patient/family. LANDY SANCHEZ
== END 2017-06-01 14:47 | disposition home or self-care (01) | DRG 314 ==
LOC: ED 16:33 → 4E 18:22 → EDHOLD 18:22 → 4E 20:15
PROVIDERS: Internal Medicine; Nurse Practitioner Family; ADMIT Internal Medicine
DX: T82.7XXA Infection and inflammatory reaction due to other cardiac and vascular devices, implants and grafts, initial encounter (principal); A41.9 Sepsis, unspecified organism; I42.9 Cardiomyopathy, unspecified; I50.42 Chronic combined systolic (congestive) and diastolic (congestive) heart failure; I11.0 Hypertensive heart disease with heart failure; I16.0 Hypertensive urgency; D50.9 Iron deficiency anemia, unspecified; I25.10 Atherosclerotic heart disease of native coronary artery without angina pectoris; D72.810 Lymphocytopenia; Y83.8 Other surgical procedures as the cause of abnormal reaction of the patient, or of later complication, without mention of misadventure at the time of the procedure; Z87.891 Personal history of nicotine dependence; Z79.82 Long term (current) use of aspirin; Z79.899 Other long term (current) drug therapy; Y92.89 Other specified places as the place of occurrence of the external cause; Z88.8 Allergy status to other drugs, medicaments and biological substances; Z82.49 Family history of ischemic heart disease and other diseases of the circulatory system; Z83.3 Family history of diabetes mellitus

== ENCOUNTER → 2020-03-17 | Outpatient (CLI) | payer MEDICARE ==
[~2020-03-17] MED LIST changes: +MULTIPLE VITAM1 EAC2 PO; +ZYVOX600 MG PO
== END | disposition home or self-care (01) ==
LOC: CARD 13:00
DX: I51.7 Cardiomegaly (principal); I25.5 Ischemic cardiomyopathy

== ENCOUNTER 2020-09-28 07:41 | Inpatient (IN) | payer OTHER ==
[2020-09-28] VITALS (25 sets, daily range): BP systolic 86–154; BP diastolic 48–82
[~2020-09-28] VITALS: Ht 187.9 cm; Wt 91.8 kg
[2020-09-28 08:26] LABS: MEAN CELL VOLUME 74.3 fl (80.0-94.0); MEAN CORPUSCULAR HGB 23.6 pg (27.0-31.0); MEAN CORPUSCULAR HGB CONC 31.7 g/dl (33.0-37.0); MEAN PLATELET VOLUME 10.8 fl (9.6-12.3); PLATELET COUNT AUTOMATED 298 10*3/uL (130-400); RED CELL DISTRI WIDTH 17.5 % (0-14.5); WHITE BLOOD COUNT 8.4 10*3/uL (4.8-10.8)
[2020-09-28 08:29] LABS: HEMATOCRIT 20.8 % (42.0-52.0)
[2020-09-28 08:36] LABS: ACT PARTIAL THROMBO TIME 32.2 SECONDS (20.0-32.1); INTERNATIONAL NORM RATIO 0.9 (2.0-3.5)
[2020-09-28 08:41] LABS: LIPASE 190 U/L (73-393)
[2020-09-28 08:42] LABS: ALBUMIN 3.3 gm/dl (3.1-4.5); ALKALINE PHOSPHATASE 92 U/L (45-117); BUN 64 mg/dl (7-24); CHLORIDE 103 mmol/L (98-107); CREATININE 2.19 mg/dL (0.70-1.30); POTASSIUM 3.2 mmol/L (3.5-5.1); SGOT/AST 21 IU/L (3-35); SGPT/ALT 32 U/L (12-78); SODIUM 134 mmol/L (136-145); TOTAL PROTEIN 7.4 gm/dL (6.4-8.2)
[2020-09-28 08:44] LABS: TROPONIN I < 0.015 ng/ml (<0.045)
[2020-09-28 08:53] LABS: OVALOCYTES FEW; PLATELET SUFFICIENCY NORMAL (NORMAL); POLYCHROMASIA SLIGHT; SCHISTOCYTES FEW; TOTAL CELLS COUNTED 100 #CELLS
[2020-09-28 08:54] LABS: MICROCYTOSIS SLIGHT
[2020-09-28] MEDS ORDERED: COREG25 MG PO (13:44)
[2020-09-28] MEDS ORDERED: CHLORTHALIDONE50 MG PO (13:44)
[2020-09-28] MEDS ORDERED: PLAVIX75 M1 PO (13:44)
[2020-09-28] MEDS ORDERED: NORVASC10 MG PO (13:45)
[2020-09-28 15:12] LABS: BASO % 0.2 % (0.0-1.0); EOS % 0.2 % (1.0-4.0); HEMATOCRIT 24.2 % (42.0-52.0); LYMPH # 1.7 10*3/uL (1.3-4.4); LYMPH % 19.1 % (27.0-41.0); MEAN CELL VOLUME 76.6 fl (80.0-94.0); MEAN CORPUSCULAR HGB 24.4 pg (27.0-31.0); MEAN CORPUSCULAR HGB CONC 31.8 g/dl (33.0-37.0); MEAN PLATELET VOLUME 10.3 fl (9.6-12.3); MONO # 0.8 10*3/uL (0.1-1.0); NEUT # 6.5 10*3/uL (2.3-7.9); NEUT % 71.3 % (47.0-73.0); PLATELET COUNT AUTOMATED 260 10*3/uL (130-400); RED BLOOD COUNT 3.16 10*6/uL (4.50-5.90); RED CELL DISTRI WIDTH 19.1 % (0-14.5); WHITE BLOOD COUNT 9.1 10*3/uL (4.8-10.8)
[2020-09-29] VITALS: BP 96/59
[2020-09-29 04:00] VITALS: BP 97/60
[2020-09-29 06:10] LABS: ALBUMIN 3.1 gm/dl (3.1-4.5); ALKALINE PHOSPHATASE 91 U/L (45-117); CHLORIDE 109 mmol/L (98-107); CHOLESTEROL 114 mg/dL (<200); CREATININE 1.31 mg/dL (0.70-1.30); HDL CHOLESTEROL 31 mg/dl (40-60); LDL CHOLESTEROL 60 mg/dL (9-159); POTASSIUM 3.6 mmol/L (3.5-5.1); SGOT/AST 22 IU/L (3-35); SGPT/ALT 26 U/L (12-78); SODIUM 140 mmol/L (136-145); TRIGLYCERIDES 115 mg/dl (<150); VLDL CHOLESTEROL 23 mg/dL (6-40)
[2020-09-29 06:17] LABS: BUN 45 mg/dl (7-24)
[2020-09-29 06:29] LABS: BASO % 0.4 % (0.0-1.0); EOS # 0.1 10*3/uL (0.0-0.4); EOS % 0.8 % (1.0-4.0); LYMPH # 1.9 10*3/uL (1.3-4.4); LYMPH % 22.6 % (27.0-41.0); MEAN CELL VOLUME 77.2 fl (80.0-94.0); MEAN CORPUSCULAR HGB 24.9 pg (27.0-31.0); MEAN CORPUSCULAR HGB CONC 32.3 g/dl (33.0-37.0); MEAN PLATELET VOLUME 10.2 fl (9.6-12.3); MONO # 0.9 10*3/uL (0.1-1.0); MONO % 10.3 % (3.0-9.0); NEUT # 5.5 10*3/uL (2.3-7.9); NEUT % 65.7 % (47.0-73.0); PLATELET COUNT AUTOMATED 270 10*3/uL (130-400); RED BLOOD COUNT 3.37 10*6/uL (4.50-5.90); RED CELL DISTRI WIDTH 18.7 % (0-14.5); WHITE BLOOD COUNT 8.4 10*3/uL (4.8-10.8)
[2020-09-29 06:40] LABS: ACT PARTIAL THROMBO TIME 35.5 SECONDS (20.0-32.1)
[2020-09-29 07:15] LABS: VITAMIN D, 25-HYDROXY 16.6 ng/mL (30-100)
[2020-09-29 08:00] VITALS: BP 124/76
[2020-09-29 12:00] VITALS: BP 95/62
[2020-09-29 16:00] VITALS: BP 114/65
[2020-09-29 20:00] VITALS: BP 110/61
[2020-09-30] VITALS: BP 105/56
[2020-09-30 06:37] LABS: BASO % 0.3 % (0.0-1.0); EOS # 0.1 10*3/uL (0.0-0.4); HEMATOCRIT 25.6 % (42.0-52.0); LYMPH # 1.8 10*3/uL (1.3-4.4); LYMPH % 23.3 % (27.0-41.0); MEAN CELL VOLUME 78.3 fl (80.0-94.0); MEAN CORPUSCULAR HGB 25.7 pg (27.0-31.0); MEAN CORPUSCULAR HGB CONC 32.8 g/dl (33.0-37.0); MONO # 0.9 10*3/uL (0.1-1.0); MONO % 11.5 % (3.0-9.0); NEUT % 63.6 % (47.0-73.0); PLATELET COUNT AUTOMATED 274 10*3/uL (130-400); RED BLOOD COUNT 3.27 10*6/uL (4.50-5.90); RED CELL DISTRI WIDTH 19.4 % (0-14.5); WHITE BLOOD COUNT 7.9 10*3/uL (4.8-10.8)
[2020-09-30 06:50] LABS: CHLORIDE 109 mmol/L (98-107); POTASSIUM 3.7 mmol/L (3.5-5.1); SODIUM 140 mmol/L (136-145)
[2020-09-30 06:51] LABS: BUN 32 mg/dl (7-24)
[2020-09-30 08:00] VITALS: BP 129/81
[2020-09-30 12:00] VITALS: BP 118/72
[2020-09-30 16:52] VITALS: BP 110/63
[2020-09-30 17:07] VITALS: BP 116/65
[2020-09-30 17:26] VITALS: BP 113/68
[2020-09-30] MEDS ORDERED: PROTONIX40 MG PO (17:41)
== END 2020-09-30 18:52 | disposition home or self-care (01) | DRG 377 ==
LOC: ED 07:41 → ICCU 09:26 → 4E 09:26 → EDHOLD 09:26 → ICCU 12:46 → 4E 09-29 16:51
PROVIDERS: Emergency Medicine; Internal Medicine; ADMIT Internal Medicine; ATTEND Internal Medicine
PROC: 30233N1 Transfusion of Nonautologous Red Blood Cells into Peripheral Vein, Percutaneous Approach (ICD-10-PCS; principal; 2020-09-28)
PROC: 0DB68ZX Excision of Stomach, Via Natural or Artificial Opening Endoscopic, Diagnostic (ICD-10-PCS; 2020-09-30)
DX: K29.71 Gastritis, unspecified, with bleeding (principal); N17.0 Acute kidney failure with tubular necrosis; E44.0 Moderate protein-calorie malnutrition; I50.42 Chronic combined systolic (congestive) and diastolic (congestive) heart failure; D62 Acute posthemorrhagic anemia; E87.2 Acidosis; I42.9 Cardiomyopathy, unspecified; I95.89 Other hypotension; K25.4 Chronic or unspecified gastric ulcer with hemorrhage; E87.6 Hypokalemia; I25.10 Atherosclerotic heart disease of native coronary artery without angina pectoris; I11.0 Hypertensive heart disease with heart failure; E83.41 Hypermagnesemia; R73.9 Hyperglycemia, unspecified; K44.9 Diaphragmatic hernia without obstruction or gangrene; Z88.6 Allergy status to analgesic agent; Z88.8 Allergy status to other drugs, medicaments and biological substances; Z95.5 Presence of coronary angioplasty implant and graft; Z95.810 Presence of automatic (implantable) cardiac defibrillator; Z87.891 Personal history of nicotine dependence; Z82.49 Family history of ischemic heart disease and other diseases of the circulatory system; Z68.26 Body mass index [BMI] 26.0-26.9, adult; Z79.899 Other long term (current) drug therapy

== ENCOUNTER → 2021-09-13 | Outpatient (CLI) | payer OTHER ==
[~2021-09-13] MED LIST changes: +CHLORTHALIDONE50 MG PO; +COREG25 MG PO; +NORVASC10 MG PO; +PLAVIX75 M1 PO; +PROTONIX40 MG PO
[2021-09-13 12:35] LABS: BASO % 0.3 % (0.0-1.0); EOS % 0.7 % (1.0-4.0); HEMATOCRIT 37.3 % (42.0-52.0); LYMPH # 1.3 10*3/uL (1.3-4.4); LYMPH % 21.7 % (27.0-41.0); MEAN CELL VOLUME 70.1 fl (80.0-94.0); MEAN CORPUSCULAR HGB 22.7 pg (27.0-31.0); MEAN CORPUSCULAR HGB CONC 32.4 g/dl (33.0-37.0); MEAN PLATELET VOLUME 8.9 fl (9.6-12.3); MONO # 0.6 10*3/uL (0.1-1.0); MONO % 9.7 % (3.0-9.0); NEUT # 4.1 10*3/uL (2.3-7.9); NEUT % 67.4 % (47.0-73.0); PLATELET COUNT AUTOMATED 341 10*3/uL (130-400); RED BLOOD COUNT 5.32 10*6/uL (4.50-5.90); RED CELL DISTRI WIDTH 16.8 % (0-14.5)
[2021-09-13 13:16] LABS: CHLORIDE 108 mmol/L (98-107); SODIUM 139 mmol/L (136-145)
[2021-09-13 13:25] LABS: BUN 26 mg/dl (7-24); CHOLESTEROL 189 mg/dL (<200); CREATININE 1.42 mg/dL (0.70-1.30); LDL CHOLESTEROL 120 mg/dL (9-159); SGOT/AST 21 IU/L (3-35); SGPT/ALT 35 U/L (12-78); TRIGLYCERIDES 115 mg/dl (<150)
== END | disposition home or self-care (01) ==
LOC: LAB 12:12
PROVIDERS: ATTEND Internal Medicine Cardiovascular Disease
DX: I25.10 Atherosclerotic heart disease of native coronary artery without angina pectoris (principal)

== ENCOUNTER → 2021-10-13 | Outpatient (CLI) | payer OTHER ==
[2021-10-13 11:28] LABS: BUN 25 mg/dl (7-24); CHLORIDE 106 mmol/L (98-107); CREATININE 1.17 mg/dL (0.70-1.30); POTASSIUM 3.6 mmol/L (3.5-5.1); SODIUM 139 mmol/L (136-145)
== END | disposition home or self-care (01) ==
LOC: LAB 10:57
PROVIDERS: ATTEND Internal Medicine Cardiovascular Disease
DX: I11.0 Hypertensive heart disease with heart failure (principal); I50.9 Heart failure, unspecified

== ENCOUNTER → 2022-03-04 | Outpatient (CLI) | payer OTHER ==
[2022-03-04 09:04] LABS: CREATININE 1.54 mg/dL (0.70-1.30); POTASSIUM 3.3 mmol/L (3.5-5.1); THYROXINE (T4) TOTAL 10.2 ug/dl (4.5-12.1); TOTAL PROTEIN 7.1 gm/dL (6.4-8.2)
[2022-03-04 09:10] LABS: THYROID STIM HORMONE (HS) 2.04 uIU/ml (0.358-4.75)
== END | disposition home or self-care (01) ==
LOC: LAB 08:18
PROVIDERS: ATTEND Internal Medicine Cardiovascular Disease
DX: I49.9 Cardiac arrhythmia, unspecified (principal)

== ENCOUNTER → 2022-03-17 | Outpatient (CLI) | payer OTHER ==
[2022-03-17 11:38] LABS: BUN 21 mg/dl (7-24); CHLORIDE 106 mmol/L (98-107); CREATININE 1.25 mg/dL (0.70-1.30); POTASSIUM 3.4 mmol/L (3.5-5.1); SGOT/AST 25 IU/L (3-35); SGPT/ALT 38 U/L (12-78); SODIUM 139 mmol/L (136-145); T3 UPTAKE 34 % (31-39); THYROXINE (T4) TOTAL 9.5 ug/dl (4.5-12.1)
[2022-03-17 11:48] LABS: ALKALINE PHOSPHATASE 98 U/L (45-117); TOTAL PROTEIN 8.1 gm/dL (6.4-8.2)
== END | disposition home or self-care (01) ==
LOC: LAB 10:52
PROVIDERS: ATTEND Internal Medicine Cardiovascular Disease
DX: I49.9 Cardiac arrhythmia, unspecified (principal)

== ENCOUNTER → 2023-04-25 | Outpatient (CLI) | payer OTHER | END | disposition home or self-care (01) | LOC: CARD 00:47 | PROVIDERS: ATTEND Internal Medicine Cardiovascular Disease | DX: I25.5 Ischemic cardiomyopathy (principal) ==

== ENCOUNTER → 2023-11-13 | Outpatient (CLI) | payer OTHER ==
[2023-11-13 11:08] LABS: BASO % 0.5 % (0.0-1.0); EOS % 0.7 % (1.0-4.0); HEMATOCRIT 43.2 % (42.0-52.0); LYMPH # 1.1 10*3/uL (1.3-4.4); LYMPH % 27.3 % (27.0-41.0); MEAN CELL VOLUME 72.7 fl (80.0-94.0); MEAN CORPUSCULAR HGB 22.7 pg (27.0-31.0); MEAN CORPUSCULAR HGB CONC 31.3 g/dl (33.0-37.0); MEAN PLATELET VOLUME 10.4 fl (9.6-12.3); MONO # 0.4 10*3/uL (0.1-1.0); MONO % 9.1 % (3.0-9.0); NEUT # 2.6 10*3/uL (2.3-7.9); NEUT % 62.2 % (47.0-73.0); PLATELET COUNT AUTOMATED 310 10*3/uL (130-400); RED BLOOD COUNT 5.94 10*6/uL (4.50-5.90); RED CELL DISTRI WIDTH 18.7 % (0-14.5); WHITE BLOOD COUNT 4.2 10*3/uL (4.8-10.8)
[2023-11-13 11:36] LABS: BUN 22 mg/dl (9-23); CHLORIDE 104 mmol/L (98-107); POTASSIUM 3.5 mmol/L (3.4-5.1)
== END | disposition home or self-care (01) ==
LOC: LAB 10:28
PROVIDERS: ATTEND Internal Medicine Cardiovascular Disease
DX: I48.0 Paroxysmal atrial fibrillation (principal); I49.9 Cardiac arrhythmia, unspecified; I50.9 Heart failure, unspecified

== ENCOUNTER → 2023-11-29 | Outpatient (CLI) | payer OTHER | END | disposition home or self-care (01) | LOC: CARD 02:02 | PROVIDERS: ATTEND Internal Medicine Cardiovascular Disease | DX: I51.7 Cardiomegaly (principal); I25.5 Ischemic cardiomyopathy; I47.29 Other ventricular tachycardia; I25.10 Atherosclerotic heart disease of native coronary artery without angina pectoris ==